=== PATIENT | female | born 1995 | race Hispanic/Latino ===

== ENCOUNTER 2019-03-08 19:25 | Outpatient (CLI) | payer OTHER ==
[2019-03-08 20:01] VITALS: BP 113/59
[2019-03-08] MEDS ORDERED: LACTATED RINGERS 500 ML IV ONE (21:46)
--- NOTE | 2019-03-08 22:20 | Ultrasound Report ---
Limited OB ultrasound FINDINGS: Single fetus is identified in breech presentation. heart rate is 146 bpm. TRACEE is norm al at 14.7 cm. Signer Name: Joel Antunez MD Signed: 03/08/2019 10:16 PM Workstation Name: [id number]
== END 2019-03-08 21:58 | disposition home or self-care (01) ==
LOC: TRG 19:25
PROVIDERS: ATTEND Obstetrics & Gynecology
DX: O47.02 False labor before 37 completed weeks of gestation, second trimester (principal); Z3A.27 27 weeks gestation of pregnancy
CPT/HCPCS: 59025; 76815